=== PATIENT | female | born 1995 ===

== ENCOUNTER 2021-12-25 13:59 | Outpatient (CLI) | payer OTHER | END 2021-12-25 14:46 | disposition home or self-care (01) | LOC: PRENATAL 13:59 | PROVIDERS: ATTEND Obstetrics & Gynecology Maternal & Fetal Medicine | DX: O36.80X0 Pregnancy with inconclusive fetal viability, not applicable or unspecified (principal); O02.89 Other abnormal products of conception ==

== ENCOUNTER 2022-02-10 10:43 | Outpatient (CLI) | payer OTHER | END 2022-02-10 12:15 | disposition home or self-care (01) | LOC: PRENATAL 10:43 | PROVIDERS: ATTEND Obstetrics & Gynecology Maternal & Fetal Medicine | DX: O35.0XX0 Maternal care for (suspected) central nervous system malformation in fetus, not applicable or unspecified (principal); O35.3XX0 Maternal care for (suspected) damage to fetus from viral disease in mother, not applicable or unspecified; Z3A.20 20 weeks gestation of pregnancy ==